=== PATIENT | male | born 1955 | race Caucasian/White ===

== ENCOUNTER 2019-03-04 00:35 | Inpatient (IN) | payer OTHER ==
[2019-03-04] MEDS ORDERED: DILTIAZEM 25 MG INJ (00:40)
[2019-03-04] MEDS: SOD CHLORIDE 0.9% 1,000 ML IV (00:54)
[2019-03-04] MEDS: DILTIAZEM 25 MG INJ IV (00:54)
[2019-03-04 01:19] LABS: ADD MAN DIFF? NO
[2019-03-04 01:23] LABS: WHITE BLOOD COUNT 10.4 10^3/ul (4.8-10.8)
[2019-03-04 01:23] LABS: BASOPHIL # 0.1 10^3/ul (0.0-0.1); EOSINOPHILS # 0.2 10^3/ul (0.0-0.5); EOSINOPHILS % 1.8 % (0.0-7.0); HEMATOCRIT 53.3 % (42.0-52.0); HEMOGLOBIN 17.3 g/dl (14.0-18.0); LYMPHOCYTES # 3.2 10^3/ul (0.8-2.9); LYMPHOCYTES % 30.7 % (15.0-51.0); MEAN CORPUSCULAR HEMOGLOBIN 31.1 pg (29.0-33.0); MEAN CORPUSCULAR HGB CONC 32.5 g/dl (32.0-37.0); MEAN CORPUSCULAR VOLUME 95.9 fl (82.0-101.0); MEAN PLATELET VOLUME 10.8 fl (7.4-10.4); MONOCYTE # 1.1 10^3/ul (0.3-0.9); MONOCYTES % 10.7 % (0.0-11.0); NEUTROPHIL # 5.8 10^3/ul (1.6-7.5); NEUTROPHILS % 55.4 % (39.0-77.0); PLATELET COUNT 262 10^3/UL (140-415); RED BLOOD COUNT 5.56 10^6/ul (4.70-6.10); RED CELL DISTRIBUTION WIDTH 13.4 % (11.5-14.5)
[2019-03-04 01:41] LABS: ALANINE AMINOTRANSFERASE 29 IU/L (13-69); ALBUMIN 4.4 g/dl (3.3-4.9); ALBUMIN/GLOBULIN RATIO 1.41; ALKALINE PHOSPHATASE 47 IU/L (42-121); ANION GAP 15 (5-13); ASPARTATE AMINO TRANSFERASE 28 IU/L (15-46); BILIRUBIN,INDIRECT 0.4 mg/dl (0-1.1); BILIRUBIN,TOTAL 0.4 mg/dl (0.2-1.3); BLOOD UREA NITROGEN 22 mg/dl (7-20); CALCIUM 10.1 mg/dl (8.4-10.2); CARBON DIOXIDE 23 mmol/L (21-31); CHLORIDE 105 mmol/L (97-110); CREATININE 0.82 mg/dl (0.61-1.24); Estimated GFR > 60 mL/min (>60); GLUCOSE 146 mg/dl (70-220); POTASSIUM 3.7 mmol/L (3.5-5.1); SODIUM 143 mmol/L (135-144); TOTAL PROTEIN 7.5 g/dl (6.1-8.1)
[2019-03-04 01:42] LABS: INR 0.89; PROTIME 12.2 Sec (11.9-14.9)
[2019-03-04 01:43] LABS: PARTIAL THROMBOPLASTIN TIME 28.3 Sec (23.0-35.0)
[2019-03-04] MEDS: DILTIAZEM-D5W 125MG/125ML DRIP 125 ML IV (01:45)
[2019-03-04 01:50] LABS: B-TYPE NATRIURETIC PEPTIDE 457 PG/ML (0-125); TROPONIN-I < 0.012 ng/ml (0.000-0.120)
[2019-03-04] MEDS ORDERED: ONDANSETRON 4 MG INJ IV ×2 (02:00→04:00)
[2019-03-04] MEDS ORDERED: ACETAMINOPHEN 325 MG TAB PO ×2 (02:00→04:00)
[2019-03-04] MEDS ORDERED: NACL 0.9% 3 ML SYG IV (04:00)
[2019-03-04] MEDS ORDERED: NITROGLYCERIN (SL) 0.4 MG TAB SL (04:00)
[2019-03-04 05:47] LABS: ADD MAN DIFF? NO
[2019-03-04 06:05] LABS: BASOPHIL # 0.1 10^3/ul (0.0-0.1); EOSINOPHILS # 0.2 10^3/ul (0.0-0.5); EOSINOPHILS % 1.8 % (0.0-7.0); HEMATOCRIT 49.2 % (42.0-52.0); HEMOGLOBIN 16.3 g/dl (14.0-18.0); LYMPHOCYTES # 2.9 10^3/ul (0.8-2.9); LYMPHOCYTES % 31.8 % (15.0-51.0); MEAN CORPUSCULAR HEMOGLOBIN 30.9 pg (29.0-33.0); MEAN CORPUSCULAR HGB CONC 33.1 g/dl (32.0-37.0); MEAN CORPUSCULAR VOLUME 93.4 fl (82.0-101.0); MEAN PLATELET VOLUME 10.8 fl (7.4-10.4); MONOCYTES % 10.5 % (0.0-11.0); NEUTROPHILS % 54.6 % (39.0-77.0); PLATELET COUNT 261 10^3/UL (140-415); RED BLOOD COUNT 5.27 10^6/ul (4.70-6.10); RED CELL DISTRIBUTION WIDTH 13.4 % (11.5-14.5)
[2019-03-04 06:05] LABS: WHITE BLOOD COUNT 9.1 10^3/ul (4.8-10.8)
[2019-03-04 06:20] LABS: CREATINE KINASE 277 IU/L (23-200)
[2019-03-04 06:28] LABS: ALANINE AMINOTRANSFERASE 31 IU/L (13-69); ALBUMIN 3.6 g/dl (3.3-4.9); ALBUMIN/GLOBULIN RATIO 1.44; ALKALINE PHOSPHATASE 37 IU/L (42-121); ANION GAP 9 (5-13); ASPARTATE AMINO TRANSFERASE 24 IU/L (15-46); BILIRUBIN,INDIRECT 0.5 mg/dl (0-1.1); BILIRUBIN,TOTAL 0.5 mg/dl (0.2-1.3); BLOOD UREA NITROGEN 21 mg/dl (7-20); CALCIUM 9.5 mg/dl (8.4-10.2); CARBON DIOXIDE 27 mmol/L (21-31); CHLORIDE 106 mmol/L (97-110); CHOL/HDL RATIO 2.8 RATIO; CHOLESTEROL 91 mg/dl (100-200); CREATININE 0.73 mg/dl (0.61-1.24); Estimated GFR > 60 mL/min (>60); GLUCOSE 143 mg/dl (70-220); HDL CHOLESTEROL 32 mg/dl (30-78); LDL CHOLESTEROL,CALCULATED 28 mg/dl; MAGNESIUM 1.5 mg/dl (1.7-2.5); SODIUM 142 mmol/L (135-144); TOTAL PROTEIN 6.1 g/dl (6.1-8.1); TRIGLYCERIDES 154 mg/dl (0-149)
[2019-03-04 06:34] LABS: CK INDEX 1.3; TROPONIN-I < 0.012 ng/ml (0.000-0.120)
[2019-03-04] MEDS: METOPROLOL 25 MG TAB PO ×2 (06:37→08:05)
[2019-03-04] MEDS: ACCU-CHEK XX ×4 (06:41→20:49)
[2019-03-04 06:46] LABS: CK-MB 3.64 ng/ml (0.0-2.4)
[2019-03-04] MEDS: metFORMIN 500 MG TAB PO (07:42)
[2019-03-04] MEDS: AMIODARONE 200 MG TAB PO ×2 (08:04→20:49)
[2019-03-04] MEDS: ASPIRIN 81 MG TAB PO (08:05)
[2019-03-04] MEDS: CLOPIDOGREL 75 MG TAB PO (08:05)
[2019-03-04] MEDS: SPIRONOLACTONE 25 MG TAB PO (08:05)
[2019-03-04] MEDS: METOLAZONE 2.5 MG TAB PO (08:05)
[2019-03-04] MEDS: FUROSEMIDE 20 MG TAB PO (08:06)
[2019-03-04] MEDS: FENOFIBRATE 145 MG TAB PO (08:06)
[2019-03-04] MEDS: MAGNESIUM SULFATE 3 GM in DEXTROSE 5% 100 ML IVPB (08:47)
[2019-03-04 08:52] LABS: HEMOGLOBIN A1C 6.6 % (0-5.9)
[2019-03-04] MEDS ORDERED: NEBIVOLOL 5 MG TAB PO (09:00)
[2019-03-04 11:03] LABS: CREATINE KINASE 433 IU/L (23-200)
[2019-03-04 11:15] LABS: CK INDEX 1.1; TROPONIN-I < 0.012 ng/ml (0.000-0.120)
[2019-03-04 11:19] LABS: CK-MB 4.62 ng/ml (0.0-2.4)
[2019-03-04] MEDS ORDERED: DEXTROSE 50% 50 ML SYRINGE IV ×2 (11:30)
[2019-03-04] MEDS ORDERED: GLUCOSE GEL 15 GRAM TUBE BUCCAL (11:30)
[2019-03-04] MEDS ORDERED: GLUCOSE GEL 15 GRAM TUBE PO ×2 (11:30)
[2019-03-04] MEDS ORDERED: GLUCAGON 1 MG INJ IM (11:30)
[2019-03-04] MEDS: INSULIN ASPART [NOVOLOG] 3 ML PEN SC ×3 (12:00→20:49)
[2019-03-04] MEDS: METOPROLOL (XL) 25 MG TAB PO (20:48)
[2019-03-04] MEDS: APIXABAN 5 MG TABLET PO (20:48)
[2019-03-05] MEDS: ACCU-CHEK XX ×3 (02:00→11:42)
[2019-03-05 06:02] LABS: ADD MAN DIFF? NO
[2019-03-05 06:05] LABS: BASOPHIL # 0.1 10^3/ul (0.0-0.1); BASOPHILS % 1.1 % (0.0-2.0); EOSINOPHILS # 0.2 10^3/ul (0.0-0.5); EOSINOPHILS % 2.4 % (0.0-7.0); HEMOGLOBIN 15.1 g/dl (14.0-18.0); LYMPHOCYTES # 2.7 10^3/ul (0.8-2.9); LYMPHOCYTES % 32.3 % (15.0-51.0); MEAN CORPUSCULAR HEMOGLOBIN 31.3 pg (29.0-33.0); MEAN CORPUSCULAR HGB CONC 33.6 g/dl (32.0-37.0); MEAN CORPUSCULAR VOLUME 93.4 fl (82.0-101.0); MEAN PLATELET VOLUME 10.5 fl (7.4-10.4); MONOCYTE # 0.9 10^3/ul (0.3-0.9); MONOCYTES % 10.5 % (0.0-11.0); NEUTROPHIL # 4.5 10^3/ul (1.6-7.5); NEUTROPHILS % 53.5 % (39.0-77.0); PLATELET COUNT 239 10^3/UL (140-415); RED BLOOD COUNT 4.82 10^6/ul (4.70-6.10); RED CELL DISTRIBUTION WIDTH 13.2 % (11.5-14.5)
[2019-03-05 06:05] LABS: WHITE BLOOD COUNT 8.4 10^3/ul (4.8-10.8)
[2019-03-05 06:40] LABS: ANION GAP 8 (5-13); BLOOD UREA NITROGEN 23 mg/dl (7-20); CALCIUM 9.4 mg/dl (8.4-10.2); CARBON DIOXIDE 29 mmol/L (21-31); CHLORIDE 103 mmol/L (97-110); CREATININE 0.85 mg/dl (0.61-1.24); Estimated GFR > 60 mL/min (>60); GLUCOSE 146 mg/dl (70-220); MAGNESIUM 1.7 mg/dl (1.7-2.5); PHOSPHORUS 3.6 mg/dl (2.5-4.9); POTASSIUM 4.4 mmol/L (3.5-5.1); SODIUM 140 mmol/L (135-144)
[2019-03-05] MEDS: INSULIN ASPART [NOVOLOG] 3 ML PEN SC ×2 (07:40→11:42)
[2019-03-05] MEDS: FENOFIBRATE 145 MG TAB PO (08:19)
[2019-03-05] MEDS: METOPROLOL (XL) 25 MG TAB PO (08:19)
[2019-03-05] MEDS: APIXABAN 5 MG TABLET PO (08:19)
[2019-03-05] MEDS: ASPIRIN 81 MG TAB PO (08:19)
[2019-03-05] MEDS: AMIODARONE 200 MG TAB PO (08:19)
[2019-03-05] MEDS: SPIRONOLACTONE 25 MG TAB PO (08:20)
[2019-03-05] MEDS: FUROSEMIDE 20 MG TAB PO (08:20)
[2019-03-05] MEDS: METOLAZONE 2.5 MG TAB PO (08:21)
[2019-03-05] MEDS ORDERED: LISINOPRIL 5 MG TAB PO (15:30)
== END 2019-03-05 15:03 | disposition home or self-care (01) | DRG 310 ==
LOC: E/R 00:35 → 6WM 01:44
DX: I48.91 Unspecified atrial fibrillation (principal); R07.9 Chest pain, unspecified; Z95.1 Presence of aortocoronary bypass graft; I25.5 Ischemic cardiomyopathy; E78.5 Hyperlipidemia, unspecified
CPT/HCPCS: 36415; 71045; 80048; 80053; 80061; 82550; 82553; 82962; 83036; 83735; 83880; 84100; 84443; 84484; 85025; 85610; 85730; 93005; 93306; 96374; 99285-25